=== PATIENT | female | born 1995 | race Caucasian/White ===

== ENCOUNTER 2022-11-10 10:26 | Outpatient (CLI) | payer OTHER, MEDICAID, SELFPAY ==
[2022-11-10 11:02] LABS: Basophils Percent Auto 0.4 % (0.2-1.2); Eosinophils Absolute Auto 0.2 K/mm3 (0-0.3); Eosinophils Percent Auto 2.4 % (0-4.4); Hematocrit 39.2 % (37.0-47.0); Hemoglobin 13.6 g/dL (12.0-15.0); Immature Granulocyte Absolute 0.04 K/mm3 (0.00-0.031); Immature Granulocyte Percent A 0.4 % (0-0.5); Lymphocytes Absolute Auto 1.49 K/mm3 (0.9-3.2); Lymphocytes Percent Auto 16.1 % (18.3-44.2); Mean Corpuscular HGB Conc 34.7 g/dl (32-36); Mean Corpuscular Hemoglobin 28.8 pg (26-34); Mean Corpuscular Volume 82.9 fl (80-100); Mean Platelet Volume 9.9 fl (7.4-10.4); Monocytes Absolute Auto 0.7 K/mm3 (0.1-0.6); Monocytes Percent Auto 7.7 % (2.6-8.5); Neutrophils Absolute Auto 6.8 K/mm3 (1.3-6.7); Platelet Count Result 272 k/mm3 (150-375); Red Blood Count 4.73 M/mm3 (4.2-5.4); White Blood Count 9.3 K/mm3 (4.5-10.0)
[2022-11-10 11:52] LABS: Hepatitis B Surface Antigen Negative (Negative)
[2022-11-10 11:53] LABS: HIV 1/2 Ab P24 Ag Result Negative (Negative)
[2022-11-12 10:51] LABS: Rapid Plasma Reagin Non-Reactive (NonReactive)
[2022-11-14 05:06] LABS: Varicella IgG Antibody <135.00 Index (>=165.00)
[2022-11-14 16:04] LABS: CMV IgG Antibody <0.60 U/mL (<0.60)
== END 2022-11-10 10:27 | disposition home or self-care (01) ==
PROVIDERS: Visit Provider Student in an Organized Health Care Education/Training Program
DX: N94.89 Other specified conditions associated with female genital organs and menstrual cycle (principal)
CPT/HCPCS: 36415; 84702; 85025; 86592; 86644; 86703; 86747; 86762; 86787; 86850; 86900; 86901; 87086; 87088; 87340; G0432

== ENCOUNTER 2023-04-16 10:55 | Outpatient (CLI) | payer OTHER, SELFPAY ==
[2023-04-16 12:38] LABS: Basophils Percent Auto 0.3 % (0.2-1.2); Eosinophils Absolute Auto 0.2 K/mm3 (0-0.3); Eosinophils Percent Auto 1.8 % (0-4.4); Hematocrit 35.8 % (37.0-47.0); Immature Granulocyte Absolute 0.11 K/mm3 (0.00-0.031); Lymphocytes Absolute Auto 1.43 K/mm3 (0.9-3.2); Lymphocytes Percent Auto 12.6 % (18.3-44.2); Mean Corpuscular HGB Conc 33.5 g/dl (32-36); Mean Corpuscular Hemoglobin 28.6 pg (26-34); Mean Corpuscular Volume 85.2 fl (80-100); Monocytes Absolute Auto 0.6 K/mm3 (0.1-0.6); Monocytes Percent Auto 5.1 % (2.6-8.5); Neutrophils Percent Auto 79.2 % (45.5-73.1); Platelet Count Result 227 k/mm3 (150-375); Red Cell Distribution Width 13.8 % (11.5-14.5); White Blood Count 11.4 K/mm3 (4.5-10.0)
[2023-04-16 12:52] LABS: Glucose 1 Hour PP 50gm Dose 141 mg/dL
[2023-04-16 13:27] LABS: HIV 1/2 Ab P24 Ag Result Negative (Negative)
== END 2023-04-16 10:56 | disposition home or self-care (01) ==
LOC: ANHLAB 10:56
PROVIDERS: Visit Provider Obstetrics & Gynecology
DX: Z34.90 Encounter for supervision of normal pregnancy, unspecified, unspecified trimester (principal); Z3A.00 Weeks of gestation of pregnancy not specified
CPT/HCPCS: 36415; 82947; 85025; 86703; G0432

== ENCOUNTER 2023-05-02 07:37 | Outpatient (CLI) | payer OTHER, SELFPAY ==
[2023-05-02 08:26] LABS: Glucose Fasting Gestational 86 mg/dL (>/=95)
[2023-05-02 10:26] LABS: Glucose 1 Hour Gest 176 mg/dL (>/=180)
[2023-05-02 10:55] LABS: Glucose 2 Hour Gest 128 mg/dL (>/= 155)
[2023-05-02 12:02] LABS: Glucose 3 Hour Gest 105 mg/dL (>/=140)
== END 2023-05-02 07:38 | disposition home or self-care (01) ==
LOC: ANHLAB 07:40
PROVIDERS: PCP Physician Assistant; Visit Provider Obstetrics & Gynecology
DX: R73.09 Other abnormal glucose (principal)
CPT/HCPCS: 36415; 82951; 82952

== ENCOUNTER 2023-06-26 17:52 | Inpatient (IN) | payer OTHER, SELFPAY ==
[2023-06-26] VITALS (9 sets, daily range): BP systolic 89–132; BP diastolic 52–72; PULSE 89–108; TEMP 35.9; BMI 37.3
--- NOTE | 2023-06-26 18:16 | LDADM ---
This patient, Jesica Aiken, was admitted to Labor/Delivery/Recovery 104 on 06/26/23 at 17:52. Plans for labor, pain management and were discussed with patient. Patient/family oriented to hospital policies and general routines including ID bracelet, bed and alarms, visiting hours, pain management, procedures, bathroom and other care routines, personal items, smoking policy, room service/diet and guest tray routines, infant security routines, and visiting hours. Patient/Family are encouraged to report perceived risks to care and to ask questions if they do not understand what they are told or what they should do. See OBIX for further documentation.
--- NOTE | 2023-06-26 18:30 | WPDANESEPP ---
Anes - Eval Pre Procedure Procedure: labor epidural Date/Time: 06/26/23 18:30 Surgeon: bonita Preop Diagnosis: pain during labor Pre Op Diagnosis: IOL Patient Data Age: 27 Gender: F Height: 1.68 m Weight: 105 kg Last Vital Signs Pulse 108 H 06/26/23 18:16 BP 132/71 06/26/23 18:16 O2 Del Method Room Air 06/26/23 18:15 Allergies Allergy/AdvReac Type Severity Reaction Status Date / Time No Known Allergies Allergy Verified 06/19/23 17:19 Home Medications Medication Instructions Recorded Confirmed Type doxylamine succinate 25 mg tablet 25 mg PO QHS PRN Sleep 03/04/23 06/19/23 History (Unisom (doxylamine)) prenat.vits,sachi,nkk-[id number]-pxnoj tablet 05/20/23 06/19/23 History Patient hx anesthesia problems: none Family hx anesthesia problems: none Results Review: All pre-operative results and documents have been reviewed as part of the pre-operative evaluation. [facility] Past Medical History Medical History Anxiety Asthma Bipolar affective disorder Depression Generalized anxiety disorder Panic disorder Primary insomnia Suppression of menses Family History Family History Mother Depressive disorder Social History Social History Smoking status: Never smoker Alcohol intake: current Alcohol use details: soically Substance use: never Substance use type: does not use Lack of Transportation: No Lack of Food: Never True Current Housing: I Have Housing Concerned About Future Housing: No Difficulty Paying Gas/Electric Bills: No Difficulty Paying for Meds: No Currently Unemployed: No Education: High School Diploma/GED Difficulty w/ Childcare or Family Care: No Living arrangements: with family Occupation/Education: unemployed Gender identity (if verbalized by the patient): Female Sexual Orientation (if Verbalized by the Patient): Straight or Heterosexual Spiritual care concerns: No Exam Day of Procedure 06/26/23 18:30
[2023-06-26 19:07] LABS: Basophils Percent Auto 0.2 % (0.2-1.2); Eosinophils Absolute Auto 0.1 K/mm3 (0-0.3); Eosinophils Percent Auto 0.7 % (0-4.4); Hematocrit 39.6 % (37.0-47.0); Hemoglobin 13.4 g/dL (12.0-15.0); Immature Granulocyte Absolute 0.09 K/mm3 (0.00-0.031); Immature Granulocyte Percent A 0.8 % (0-0.5); Lymphocytes Absolute Auto 1.24 K/mm3 (0.9-3.2); Lymphocytes Percent Auto 11.1 % (18.3-44.2); Mean Corpuscular HGB Conc 33.8 g/dl (32-36); Mean Corpuscular Hemoglobin 28.5 pg (26-34); Mean Corpuscular Volume 84.3 fl (80-100); Mean Platelet Volume 10.2 fl (7.4-10.4); Monocytes Absolute Auto 0.8 K/mm3 (0.1-0.6); Monocytes Percent Auto 6.9 % (2.6-8.5); Neutrophils Percent Auto 80.3 % (45.5-73.1); Platelet Count Result 215 k/mm3 (150-375); Red Cell Distribution Width 14.6 % (11.5-14.5); White Blood Count 11.2 K/mm3 (4.5-10.0)
[2023-06-26] MEDS: DINOPROSTONE 10 MG VAG INSERT VAGINAL (19:08)
[2023-06-27] VITALS (152 sets, daily range): BP systolic 84–147; BP diastolic 41–123; PULSE 79–260; RESP 16–20; TEMP 36.1–37.1; O2SAT 93–100
--- NOTE | 2023-06-27 07:25 | PM.IMHP ---
H&P: HPI History of Present Illness Date/Time: 06/26/23 14:52 Chief Complaint: induction of labor Narrative: Jesica is a 27yo @ 40.6wks who presents to L&D for induction of labor. She is s/p cervidil overnight. She has had regular care. She reports feeling the contractions, good movement. She denies vaginal bleeding or leakage of fluid. Her is complicated by: - Low lying placenta -- RESOLVED - Elevated 1 hour glucose; 3 hour within normal limits Review of Systems Constitutional: Constitutional: Denies chills, Denies fever(s) and Denies headache(s) Eyes: Eyes: Denies change in vision ENT: Denies headache(s) Cardiovascular: Cardiovascular: Denies chest pain and Denies dyspnea Respiratory: Respiratory: Denies dyspnea Genitourinary: Genitourinary: Denies abnormal vaginal bleeding and Denies vaginal discharge Neurologic: Denies headache(s) Psychiatric: Psychiatric: Denies anxiety and Denies depression [facility] Past Medical History Medical History Anxiety Asthma Bipolar affective disorder Depression Generalized anxiety disorder Panic disorder Primary insomnia Suppression of menses Family History Family History Mother Depressive disorder Social History Social History Smoking status: Never smoker Alcohol intake: current Alcohol use details: soically Substance use: never Substance use type: does not use Lack of Transportation: No Lack of Food: Never True Current Housing: I Have Housing Concerned About Future Housing: No Difficulty Paying Gas/Electric Bills: No Difficulty Paying for Meds: No Currently Unemployed: No Education: High School Diploma/GED Difficulty w/ Childcare or Family Care: No Living arrangements: with family Occupation/Education: unemployed Gender identity (if verbalized by the patient): Female Sexual Orientation (if Verbalized by the Patient): Straight or Heterosexual Spiritual care concerns: No Meds Home Medications and Allergies Home Medications Medication Instructions Recorded Confirmed Type doxylamine succinate 25 mg tablet 25 mg PO QHS PRN Sleep 03/04/23 06/19/23 History (Unisom (doxylamine)) prenat.vits,sachi,xtl-yncx-omrxt tablet 05/20/23 06/19/23 History Allergies Allergy/AdvReac Type Severity Reaction Status Date / Time No Known Allergies Allergy Verified 06/19/23 17:19 Exam Const: General: cooperative, comfortable, no acute distress and obese Nutritional Appearance: obese Orientation/consciousness: patient oriented x3 Resp: Effort & Inspection: normal respiratory effort Cardio: Rate: regular rate GI: GI Palp: No abdominal tenderness : Other: FHT's: 140's/ mod tez/ + accels/ no decels - cat 1 TOCO: ctxs q2min Cervix: 3.5/70/-2 Membranes: SROM, clear 0720 Presentation: cephalic Skin: General skin exam: normal color Neuro: General: patient oriented x3 Extrem: General: normal to inspection Psych: Appearance: grossly normal Affect: normal affect Attitude: cooperative Assessment and Plan Assessment and plan (1) Encounter for induction of labor: Code(s): Z34.90 - Encounter for supervision of normal , unspecified, unspecified trimester Status: Acute Plan - S/p Cervidil overnight; now ripe-- AROM performed this AM - Continuous monitoring; currently reassuring - GBS negative - Anesthesia consult PRN pain
[2023-06-27] MEDS: LACTATED RINGERS 1,000 ML 125 ML IV CONT ×2 (08:44→17:58)
[2023-06-27] MEDS: OXYTOCIN 30 UNITS/NS 500 ML 30 UNITS/500 ML BAG 6 UNITS IV CONT (11:45)
--- NOTE | 2023-06-27 13:04 | PM.OBPNLAB ---
Pain Control Date/time seen: 06/27/23 13:04 Pain control: epidural Pelvic Exam Dilation (cm): 5 (.5) Effacement (%): 90 station: -2 Amniotic membrane status: Ruptured Contractions Monitor mode: Internal Contraction frequency: 2 (-3) Status status: Category ll Comments: occasional variable decelerations; moderate variability Assessment and Plan Pitocin rate (mU/min): 8 Plan: continuous present management
--- NOTE | 2023-06-27 16:48 | PM.OBPNLAB ---
Pain Control Date/time seen: 06/27/23 16:48 Pain control: epidural Pelvic Exam Dilation (cm): 9 Effacement (%): 90 station: 0 Amniotic membrane status: Ruptured Contractions Monitor mode: External Contraction frequency: 2 (-3) Status status: Category l Assessment and Plan Pitocin rate (mU/min): 10 Assessment: active labor Plan: continuous present management
[2023-06-27 17:06] LABS: Rapid Plasma Reagin Non-Reactive (NonReactive)
--- NOTE | 2023-06-27 19:10 | PM.OBPRVD ---
OB - Delivery Note Procedure Delivery date: 06/27/23 Events: Other (induction of labor for post-dates) Induction method: Per Cervidil Protocol Delivery augmentation: Rupture of Membranes and Pitocin Delivery monitor: External FHT and Internal Uterine Route of delivery: Laceration Description: None Quantitative Blood Loss (ml): 200 Anesthesia type: Epidural (discontinued prior to pushing) Disposition: Floor [place] Baby Date of : 06/27/23 Time of : 18:50 Weeks of gestation at delivery: 41 gender: Female presentation: vertex position: Right Occiput Anterior Placenta delivery description: Expressed Cord Vessel Description: 3 Vessels and Delayed Cord Clamping score one minute: 8 score five minutes: 9 Narrative: Jesica progressed to complete dilation with strong desire to push. She pushed for 1 hour with good maternal effort. She delivered the head over intact perineum. No nuchal cord was palpated. She easily delivered the infant's shoulders and body without complication. The was immediately placed skin to skin and had spontaneous cry. Delayed cord clamping was performed. The umbilical cord was then doubly clamped and cut. A segment of the cord was collected for cord gases. The remaining cord blood was collected for typing. With Pitocin running and gentle downward traction on the cord, the placenta delivered without complications. Bimanual massage was performed and good uterine tone with minimal bleeding was noted. She was examined and no lacerations were identified. Sponge, lap, instrument, needle counts were correct at the end the procedure. Mom and baby were left bonding skin to skin in the birthing suite in stable condition. weight pending. [facility] Delivery Billing Delivery Delivery: Delivery Charge
--- NOTE | 2023-06-27 19:17 | PM.OBDSVD ---
DS: Admitting Diagnosis Discharge Date 06/28/23 Admitting Diagnosis Induction of labor 41 weeks gestation DS: Discharge Diagnosis Discharge Diagnosis (1) Normal vaginal delivery of first : Code(s): O80 - Encounter for full-term uncomplicated delivery Status: Acute OB - DS: Summary OB Procedures : Ultrasound OB Procedures Intrapartum: Spontaneous Vag Delivery OB Procedures: : None Peripartum Data Infant Delivery Method: Natural Vaginal Laceration Description: None complications: none 1: Gender: Female Disposition of : home Status at Discharge Functional status at discharge: independent ambulation Overall status at discharge: patient is back to baseline Time Spent with Patient Time attestation: Total time spent providing and/or coordinating discharge services: Time spent: Less than 30 minutes Exam Const: General: cooperative, comfortable and no acute distress Orientation/consciousness: patient oriented x3 Resp: Effort & Inspection: normal respiratory effort Auscultation: clear to auscultation bilaterally Cardio: Rate: regular rate GI: Inspection: non-distended GI Palp: No abdominal tenderness and Yes Soft to palpation Auscultation: normal bowel sounds : Other: fundus firm Skin: General skin exam: normal color Neuro: General: patient oriented x3 Extrem: General: normal to inspection Psych: Appearance: grossly normal Affect: normal affect Attitude: cooperative DS: Data Data Completed and Pending Labs on day of discharge: Labs from last 24 hours 06/26/23 18:03 RPR Non-reactive Blood Type B Positive Antibody Screen Negative Discharge Plan Discharge Discharging Clinician: Jennifer Crenshaw Anticipated Discharge Date/Time: 06/29/23 15:00 Patient Disposition: Home, Self-Care Activity: may shower and pelvic rest Diet: regular Discharge Instructions: Education: Mom and Baby Guide Given to: Mother Follow-Up: Call your delivering provider's office for an appointment to be seen in: 6 Weeks Mom and baby should come to the [facility] for the follow-up appointment. Appointment Date/Time: July 01, 2023 at 11:00 am What to expect at your follow-up visit: Blood Pressure Check Call [phone] if you are unable to keep your appointment time. BREAST CARE: * Wear a snug supportive bra. * For engorgement discomfort: Breast Feeding: * Apply warm moist washcloths * Express milk as needed to relieve engorgement * Wear loose clothing * For sore nipples: * Identify correct latch-on * Apply warm moist washcloths before and after nursing * Air dry nipples after nursing * May apply Lansinoh cream to nipples ACTIVITY: * Rest as much as possible. * Do not exercise or lift anything heavier than your baby (such as laundry or other children.) * Avoid stairs or driving as much as possible. * Do not put anything into the vagina. No douching, tampons, or sexual activity until seen by physician. NOTIFY PHYSICIAN IF YOU HAVE ANY QUESTIONS OR IF ANY OF THE FOLLOWING SYMPTOMS OCCUR: * If your perineum becomes red, swollen, or more painful than what you have experienced in the hospital. * If your vaginal bleeding becomes foul smelling. * If your vaginal bleeding becomes more heavy than a period or if your bleeding changes from pink to bright red. However, you may pass an occasional walnut-sized clot once or twice for the first week . * If you experience a sharp, shooting pain in you calves. * If you discover a hard, reddened area on your breast or if you experience flu-like symptoms. DIET: * Eat regular, well-balanced meals. * Drink plenty of fluids daily. If , drink to thirst. Patient Instructions: Vaginal Delivery (DC) Stand Alone Forms: General Discharge Information
[2023-06-27] MEDS: OXYTOCIN 30 UNITS/NS 500 ML 30 UNITS/500 ML BAG 125 UNITS IV CONT (19:23)
[2023-06-27] MEDS: IBUPROFEN 600 MG TABLET PO (21:40)
[2023-06-27] MEDS: BENZOCAINE 20% AER SPR (*SP) 56 GM CAN 1 SPRAY TOPICAL (21:41)
[2023-06-27] MEDS: WITCH HAZEL 40 PADS 1 PAD TOPICAL (21:41)
--- NOTE | 2023-06-27 21:50 | PC.NURSE ---
Patient transferred to post room # 278 via (W/C ). Support person present. Oriented to unit, room, information board, rooming in, admission packet and security measures. Patient verbalizes understanding.
[2023-06-28] MEDS: ACETAMINOPHEN 325 MG TABLET 650 MG PO (04:20)
[2023-06-28 04:30] VITALS: BP 125/57; PULSE 106; RESP 18; TEMP 36.6; O2SAT 99
[2023-06-28 06:25] LABS: Hemoglobin 12.1 g/dL (12.0-15.0)
[2023-06-28 07:35] VITALS: BP 114/69; PULSE 102; RESP 18; TEMP 36.4; O2SAT 97
--- NOTE | 2023-06-28 08:01 | P.PNOB_ITS ---
OB - PN: Subj Subjective Date/time seen: 06/28/23 08:01 Patient comments: no complaints, pain well controlled and tolerating diet [place] feeding status: exclusively breast feeding Narrative: patient doing well this AM. No complaints. Pain is well controlled. She reports minimal bleeding. She is ambulating and voiding without difficulty. She is tolerating PO. She denies N/V, fever, chills. OB - PN: Obj Data Labs 06/28/23 06:17 Labs: Laboratory Results - last 24 hr 06/26/23 06/28/23 18:03 06:17 Hgb 12.1 Hct 36.0 L RPR Non-reactive OB - PN A/P Plan day: 1 Plan: routine care Comments: patient doing well H/H stable continue routine care Time Spent With Patient Time: Total time spent is greater than 50% in coordination of care (as documented) at patient's floor/unit and/or counseling patient: Time with patient: less than 15 minutes Review of Systems Review of Systems: All systems reviewed & are unremarkable except as noted in HPI and below Exam Const: General: comfortable and no acute distress Resp: Effort & Inspection: normal respiratory effort Cardio: Rate: regular rate GI: GI Palp: Yes Soft to palpation and No Tenderness to palpation present (GI) Auscultation: normal bowel sounds Other: fundus firm and below umbilicus. Psych: Affect: normal affect
--- NOTE | 2023-06-28 08:46 | WPDANESPN ---
Anes - Prog Note Post-Op Date/Time: 06/28/23 08:46 Cardiovascular status: normal Respiratory status: normal Airway patency: baseline Mental status: baseline Post-Op hydration status: normal Vital Signs: Last Vital Signs Temp 36.6 C 06/28/23 04:30 Pulse 106 H 06/28/23 04:30 Resp 18 06/28/23 04:30 BP 125/57 L 06/28/23 04:30 Pulse Ox 99 06/28/23 04:30 O2 Del Method Room Air 06/27/23 22:20 Pain Score (VAS): 3/10 I/O: Intake & Output 06/27/23 06/28/23 06/28/23 23:59 07:59 15:59 Intake Total 1500 Output Total 200 Balance 1300 Laboratory Tests 06/28/23 06:17 06/26/23 06/28/23 18:03 06:17 Hgb 12.1 Hct 36.0 L RPR Non-reactive Post-procedural complaints: none Patient Feedback: Patient satisfied with anesthetic care.
[2023-06-28] MEDS: MULTIVIT/MIN/PREN/FOL AC/IRON TABLET 1 TAB PO (09:12)
[2023-06-28] MEDS: DOCUSATE SODIUM 100 MG CAPSULE PO (09:12)
[2023-06-28] MEDS: IBUPROFEN 600 MG TABLET PO (09:12)
--- NOTE | 2023-06-28 11:28 | PC.NURSE ---
1006 - [id number] Introductions were made, then consulted with patient to assess needs related to . Mother led the conversation with her?plans to feed?her infant, the?experience so far with going well and without pain. Mother works well with her infant. Encouraged understanding of the benefits of skin to skin (demonstrating unwrapping and placing upright on her chest), stimulating with massage touch, changing positions to encourage wakefulness, how to watch for early feeding cues, responsive feeding, feeding on demand (aiming for 8-12 times in 24 hours, about every 2-3 hours), milk production, building/maintaining a milk supply, duration of feeding, signs of adequate intake/output and how to record on the feeding sheet. Reviewed positioning and ear, shoulder, hip alignment, supporting the breast to facilitate a deep latch, asymmetrical latch (off-center), leading with the chin with a big, open, wide gape and body close to mother. latched optimally to the left breast in football position. Education given to mother of how to visualize suck/swallow ratios and listen for drinking at the breast. Infant was able to maintain latch without discomfort to mother. Nipple care reviewed with optimal latch and good positioning. Reviewed good handwashing when or touching the breast/nipples to prevent infection. Resources used to facilitate learning were used with the mom and baby guide. Mother voiced understanding of skin to skin, stimulating with massage touch, responsive feedings, talking to to encourage on demand and if it has been 2 -2.5 hours since the start of the last , to call if infant does not latch, or if there is discomfort with . Resources provided for inpatient/outpatient with name written on the communication board, feeding sheet and the mom/baby guide. Parents voiced understanding of information, demonstrated learning and will call if there is a request for assistance. Primary RN present during a portion of the consult.
[2023-06-28 12:07] VITALS: BP 123/60; PULSE 102; RESP 16; TEMP 36.3; O2SAT 99
[2023-07-01 11:24] VITALS: BP 108/65; PULSE 76; RESP 16; TEMP 36.6; O2SAT 98
== END 2023-06-28 20:45 | disposition home or self-care (01) | DRG 807 ==
LOC: ANHLDR 06-27 19:17 → ANHOB2 06-28 20:07 → ANHLDR 07-01 11:34 → ANHOB2 07-01 11:34
PROVIDERS: Admitting Provider Obstetrics & Gynecology; PCP Physician Assistant; Visit Provider Student in an Organized Health Care Education/Training Program
DX: O48.0 Post-term pregnancy (principal); Z37.0 Single live birth; Z3A.41 41 weeks gestation of pregnancy; O36.8330 Maternal care for abnormalities of the fetal heart rate or rhythm, third trimester, not applicable or unspecified; O99.344 Other mental disorders complicating childbirth; F31.9 Bipolar disorder, unspecified; F41.1 Generalized anxiety disorder
CPT/HCPCS: 36415; 85014; 85018; 85025; 86592; 86850; 86900; 86901; A9270; J2590; J2795; J7120

== ENCOUNTER 2023-07-10 13:07 | Emergency (ER) | payer OTHER, SELFPAY ==
[2023-07-10 13:15] VITALS: BP 132/80; PULSE 79; RESP 16; TEMP 36.4; O2SAT 97
--- NOTE | 2023-07-10 13:42 | ED.GENADULT ---
HPI - General Adult General Chief complaint: Recheck/Abnormal Lab/Rx Stated complaint: post complications Time Seen by Provider: 07/10/23 13:38 History of Present Illness HPI narrative: Patient is a , had induced vaginal delivery at 41 weeks on 06/27/23 here with concern for bulging tissue from rectum. Patient notes that her vaginal delivery was uncomplicated, no vaginal tearing appreciated. She has been doing well but over the last few days she has noted worsening bulging tissue from her rectum and pain with defecation. She does note that she had intermittent issues with hemorrhoids in her 3rd trimester which she was using [id number] medications for and they would resolve. She is using some [id number] medications and taken 2 sets past without improvement of symptoms. She noted that the bulging seem to be worse than usual and after reading online she was concerned that she possibly had a rectal prolapse. She notes that she has been healing well from gynecology standpoint, has some bleeding but it seems to be mild and only worsens when she has had a very active day. She notes that her baby seemed to be doing well post delivery. Related Data Home Medications Medication Instructions Recorded Confirmed doxylamine succinate 25 mg tablet 25 mg PO QHS PRN Sleep 03/04/23 06/19/23 (Unisom (doxylamine)) prenat.vits,sachi,skf-jovo-utcyd tablet 05/20/23 06/19/23 Allergies Allergy/AdvReac Type Severity Reaction Status Date / Time No Known Allergies Allergy Verified 07/10/23 13:18 Review of Systems Review of Systems: CONSTITUTIONAL: Denies fever, chills, or sweats. EYES: Denies visual changes, redness, or discharge. ENT: Denies rhinorrhea, congestion, sore throat, or otalgia. CARDIOVASCULAR: Denies chest pain, palpitations, or edema. RESPIRATORY: Denies cough or dyspnea. GASTROINTESTINAL: Denies abdominal pain, nausea, vomiting, or diarrhea. Rectal pain, bulging tissue from rectum. GENITOURINARY: Denies dysuria or hematuria. SKIN: Denies rash or itching. MUSCULOSKELETAL: Denies back pain, joint pain, or myalgia. NEUROLOGIC: Denies headache, numbness, or weakness. [facility] Past Medical History Medical History Anxiety Asthma Bipolar affective disorder Depression Generalized anxiety disorder Panic disorder Primary insomnia Suppression of menses Family History Family History Mother Depressive disorder Social History Social History Smoking status: Never smoker Alcohol intake: current Alcohol use details: soically Substance use: never Substance use type: does not use Lack of Transportation: No Lack of Food: Never True Current Housing: I Have Housing Concerned About Future Housing: No Difficulty Paying Gas/Electric Bills: No Difficulty Paying for Meds: No Currently Unemployed: No Education: High School Diploma/GED Difficulty w/ Childcare or Family Care: No Living arrangements: with family Occupation/Education: unemployed Gender identity (if verbalized by the patient): Female Sexual Orientation (if Verbalized by the Patient): Straight or Heterosexual Spiritual care concerns: No Exam Narrative: GENERAL: Well-appearing, well-nourished, and in no acute distress. HEAD: Normocephalic, atraumatic. EYES: PERRLA and EOMI. ENT: Nares clear. Mucous membranes moist. NECK: Supple. CHEST: Clear to auscultation. No respiratory distress. HEART: Regular rate and rhythm. Normal peripheral pulses. ABDOMEN: Soft, nontender, nondistended. Rectal: (exam performed with RN as superintendent drilling. Patient has external hemorrhoids present at 3oclock position, small area of bleeding, no obvious thrombosis. No evidence of rectal prolapse. EXTREMITIES: Normal range of motion. No edema. SKIN: Warm, dry, no rash. NEURO: No focal
[2023-07-10 14:04] VITALS: BP 124/77; PULSE 71; RESP 14; O2SAT 99
== END 2023-07-10 14:06 | disposition home or self-care (01) ==
PROVIDERS: Emergency Provider Student in an Organized Health Care Education/Training Program; PCP Physician Assistant
DX: O87.2 Hemorrhoids in the puerperium (principal); O99.53 Diseases of the respiratory system complicating the puerperium; J45.909 Unspecified asthma, uncomplicated
CPT/HCPCS: 99281

== ENCOUNTER 2023-09-04 14:51 | Outpatient (CLI) | payer OTHER, SELFPAY ==
[2023-09-04 15:55] LABS: Beta HCG Quantitative < 2.39 mIU/ML
== END 2023-09-04 14:52 | disposition home or self-care (01) ==
LOC: ANHLAB 14:53
PROVIDERS: PCP Physician Assistant; Visit Provider Obstetrics & Gynecology
DX: N92.6 Irregular menstruation, unspecified (principal)
CPT/HCPCS: 36415; 84702